=== PATIENT | male | born 1955 | race Caucasian/White ===

== ENCOUNTER 2020-10-28 18:53 | Observation (INO) ==
[2020-10-28] MEDS ORDERED: Naloxone 0.4 MG/ML INJ IVP PRN (22:20)
[2020-10-28] MEDS ORDERED: Ondansetron 4 MG/2 ML VIAL IVP PRN (22:55)
[2020-10-28] MEDS ORDERED: Acetaminophen 325 MG TABLET PO PRN (22:55)
[2020-10-28] MEDS: Melatonin 3 MG TABLET PO PRN (23:18)
[2020-10-29] MEDS ORDERED: Perflutren Lipid Microsphere 1.3 ML in 0.9 % Sodium Chloride 8.7 ML IVP PRN (02:49)
[2020-10-29] MEDS ORDERED: Nicotine 21 MG PATCH.TD24 TD PRN (02:50)
[2020-10-29 02:56] LABS: Basophils # 0.1 K/mcL (0.0-0.2); Basophils % 0.6 %; Eosinophils # 0.1 K/mcL (0.0-0.6); Eosinophils % 1.6 %; Hematocrit 35.1 % (37.5-50.1); Immature Granulocytes % 0.4 % (0-4); Lymphocytes # 1.6 K/mcL (0.6-4.6); Lymphocytes % 19.8 %; Mean Corpuscular HGB Conc 34.2 g/dL (31.6-35.5); Mean Corpuscular Hemoglobin 34.4 pg (28.0-33.3); Mean Corpuscular Volume 100.6 fL (83.0-100.0); Mean Platelet Volume 10.2 fL (9.4-12.4); Monocytes # 0.7 K/mcL (0.0-1.3); Monocytes % 8.7 %; Neutrophils # 5.7 K/mcL (1.6-8.9); Platelet Count 127 K/mcL (140-400); Red Blood Count 3.49 M/mcL (4.19-5.50); Red Cell Distribution Width 13.9 % (11.5-14.5); Segmented Neutrophils % 68.9 %; White Blood Count 8.2 K/mcL (4.3-11.1)
[2020-10-29 03:11] LABS: Alanine Aminotransferase 17 Units/L (7-52); Albumin 3.7 g/dL (3.5-5.7); Albumin/Globulin Ratio 1.5 (1.1-2.2); Alkaline Phosphatase 58 Units/L (34-104); Aspartate Amino Transferase 15 Units/L (13-39); BUN/Creatinine Ratio 14 (6-26); Bilirubin,Total 0.9 mg/dL (0.3-1.0); Blood Urea Nitrogen 14 mg/dL (8-23); Calcium 8.7 mg/dL (8.6-10.3); Carbon Dioxide 23 mEq/L (23-29); Chloride 109 mEq/L (98-107); Globulin 2.5 g/dL (2.4-3.5); Glucose 185 mg/dL (70-105); Magnesium 1.6 mg/dL (1.6-2.6); Osmolality,Calculated 295 (280-300); Phosphorous 3.9 mg/dL (2.7-4.5); Potassium 3.5 mEq/L (3.5-5.1); Sodium 140 mEq/L (136-145); Total Protein 6.2 g/dL (6.4-8.9); Troponin I < 0.03 ng/mL (< 0.04); eGFR For African Americans > 60 (> 60); eGFR For Non-African Americans > 60 (> 60)
[2020-10-29] MEDS ORDERED: *HR* Enoxaparin 120 MG/0.8 ML SYRINGE SQ SCH (06:00)
[2020-10-29] MEDS: Furosemide 40 MG/4 ML VIAL IVP SCH (08:54)
[2020-10-29] MEDS: lisinopriL 10 MG TABLET PO SCH (08:55)
[2020-10-29] MEDS: Metoprolol XL (24 HR) Succ 50 MG TAB.ER.24H PO SCH (08:55)
[2020-10-29] MEDS: predniSONE 20 MG TABLET PO SCH (08:55)
[2020-10-29] MEDS ORDERED: Metoprolol XL (24 HR) Succ 25 MG TAB.ER.24H PO SCH (09:00)
[2020-10-29] MEDS: Aspirin 81 MG TAB.CHEW PO SCH (09:59)
[2020-10-29] MEDS: Ipratropium/Albuterol Neb 3 ML IH SCH ×3 (10:18→22:32)
[2020-10-29] MEDS: clonazePAM 0.5 MG TABLET PO PRN (12:46)
[2020-10-29] MEDS ORDERED: Magnesium Sulfate 1 GM/102 ML PIGGYBACK IVPB ONE (15:11)
[2020-10-29] MEDS: Apixaban 5 MG TABLET PO SCH (20:34)
[2020-10-29] MEDS: Melatonin 3 MG TABLET PO PRN (20:38)
[2020-10-30] MEDS: Ipratropium/Albuterol Neb 3 ML IH SCH ×4 (03:52→22:01)
[2020-10-30 04:41] LABS: Basophils % 0.3 %; Eosinophils % 0.5 %; Hematocrit 34.2 % (37.5-50.1); Hemoglobin 11.7 g/dL (12.9-16.9); Immature Granulocytes % 0.5 % (0-4); Lymphocytes # 1.5 K/mcL (0.6-4.6); Lymphocytes % 17.4 %; Mean Corpuscular HGB Conc 34.2 g/dL (31.6-35.5); Mean Corpuscular Volume 99.4 fL (83.0-100.0); Mean Platelet Volume 10.5 fL (9.4-12.4); Monocytes # 0.8 K/mcL (0.0-1.3); Monocytes % 9.5 %; Neutrophils # 6.3 K/mcL (1.6-8.9); Platelet Count 127 K/mcL (140-400); Red Blood Count 3.44 M/mcL (4.19-5.50); Red Cell Distribution Width 13.2 % (11.5-14.5); Segmented Neutrophils % 71.8 %; White Blood Count 8.8 K/mcL (4.3-11.1)
[2020-10-30 05:01] LABS: BUN/Creatinine Ratio 20 (6-26); Blood Urea Nitrogen 19 mg/dL (8-23); Calcium 8.8 mg/dL (8.6-10.3); Carbon Dioxide 24 mEq/L (23-29); Chloride 105 mEq/L (98-107); Glucose 158 mg/dL (70-105); Magnesium 1.8 mg/dL (1.6-2.6); Osmolality,Calculated 292 (280-300); Potassium 3.4 mEq/L (3.5-5.1); Sodium 138 mEq/L (136-145); eGFR For African Americans > 60 (> 60); eGFR For Non-African Americans > 60 (> 60)
[2020-10-30] MEDS: clonazePAM 0.5 MG TABLET PO PRN ×2 (08:30→21:55)
[2020-10-30] MEDS: Furosemide 40 MG/4 ML VIAL IVP SCH ×2 (08:30→16:59)
[2020-10-30] MEDS: Aspirin 81 MG TAB.CHEW PO SCH (08:30)
[2020-10-30] MEDS: predniSONE 20 MG TABLET PO SCH (08:30)
[2020-10-30] MEDS: Metoprolol XL (24 HR) Succ 50 MG TAB.ER.24H PO SCH (08:30)
[2020-10-30] MEDS: Apixaban 5 MG TABLET PO SCH ×2 (08:30→21:52)
[2020-10-30] MEDS: lisinopriL 10 MG TABLET PO SCH (08:30)
[2020-10-30] MEDS: Melatonin 3 MG TABLET PO PRN (21:55)
[2020-10-31] MEDS: Ipratropium/Albuterol Neb 3 ML IH SCH ×3 (03:59→15:12)
[2020-10-31 06:22] LABS: Basophils % 0.4 %; Eosinophils % 0.4 %; Hematocrit 36.9 % (37.5-50.1); Hemoglobin 12.2 g/dL (12.9-16.9); Immature Granulocytes % 0.4 % (0-4); Lymphocytes # 1.8 K/mcL (0.6-4.6); Lymphocytes % 19.3 %; Mean Corpuscular HGB Conc 33.1 g/dL (31.6-35.5); Mean Corpuscular Hemoglobin 33.9 pg (28.0-33.3); Mean Corpuscular Volume 102.5 fL (83.0-100.0); Mean Platelet Volume 10.3 fL (9.4-12.4); Monocytes # 0.8 K/mcL (0.0-1.3); Monocytes % 8.7 %; Neutrophils # 6.5 K/mcL (1.6-8.9); Platelet Count 139 K/mcL (140-400); Red Cell Distribution Width 13.4 % (11.5-14.5); Segmented Neutrophils % 70.8 %; White Blood Count 9.1 K/mcL (4.3-11.1)
[2020-10-31 07:28] LABS: BUN/Creatinine Ratio 18 (6-26); Blood Urea Nitrogen 19 mg/dL (8-23); Calcium 8.7 mg/dL (8.6-10.3); Carbon Dioxide 23 mEq/L (23-29); Chloride 107 mEq/L (98-107); Glucose 118 mg/dL (70-105); Osmolality,Calculated 287 (280-300); Potassium 4.2 mEq/L (3.5-5.1); Sodium 137 mEq/L (136-145); eGFR For African Americans > 60 (> 60); eGFR For Non-African Americans > 60 (> 60)
[2020-10-31] MEDS: predniSONE 20 MG TABLET PO SCH (10:16)
[2020-10-31] MEDS: Metoprolol XL (24 HR) Succ 50 MG TAB.ER.24H PO SCH (10:16)
[2020-10-31] MEDS: Aspirin 81 MG TAB.CHEW PO SCH (10:16)
[2020-10-31] MEDS: lisinopriL 10 MG TABLET PO SCH (10:16)
[2020-10-31] MEDS: Apixaban 5 MG TABLET PO SCH (10:17)
[2020-10-31] MEDS: Furosemide 40 MG/4 ML VIAL IVP SCH (10:17)
[2020-10-31] MEDS: clonazePAM 0.5 MG TABLET PO PRN (10:23)
[2020-10-31 11:12] VITALS: BP 136/88
[2020-11-01] MEDS ORDERED: Spironolactone 25 MG TABLET PO SCH (09:00)
[2020-11-01] MEDS ORDERED: Furosemide 40 MG TABLET PO SCH (09:00)
[2020-11-01] MEDS ORDERED: Metoprolol XL (24 HR) Succ 50 MG TAB.ER.24H PO SCH (09:00)
== END 2020-10-31 18:05 | disposition home or self-care (01) ==
LOC: 3ANU → SUATTDRO 21:00
PROVIDERS: ADMIT Internal Medicine; ATTEND Student in an Organized Health Care Education/Training Program